=== PATIENT | female | born 1940 | race Hispanic/Latino ===

== ENCOUNTER 2024-10-19 09:03 | Emergency (ER) | payer MEDICARE ==
[~2024-10-19] VITALS: Ht 152.4 cm; Wt 69.4 kg
[2024-10-19 09:32] LABS: EOSINOPHILS % 0.6 % (0.0-6.0); HEMATOCRIT 38.7 % (34.2-44.1); HEMOGLOBIN 12.4 g/dL (12.0-16.0); LYMPHOCYTES # (AUTO) 0.8 (1.0-3.2); LYMPHOCYTES % 12.4 % (18.0-39.1); MEAN CORPUSCULAR VOLUME 90.6 fL (81-99); MONOCYTES # (AUTO) 0.4 (0.2-0.8); MONOCYTES % 5.5 % (4.4-11.3); NEUTROPHILS # (AUTO) 5.5 (2.1-6.9); NEUTROPHILS % 81.4 % (38.7-80.0); PLATELET COUNT 352 x10e3/uL (140-360); RED BLOOD COUNT 4.27 x10e6/uL (3.6-5.1); RED CELL DISTRIBUTION WIDTH 14.1 % (11.7-14.4); WHITE BLOOD COUNT 6.72 x10e3/uL (4.8-10.8)
[2024-10-19 09:41] LABS: CLARITY,URINE CLEAR (CLEAR); COLOR,URINE YELLOW (YELLOW)
[2024-10-19 09:42] LABS: BILIRUBIN,URINE NEGATIVE (NEGATIVE); GLUCOSE, URINE NEGATIVE (NEGATIVE); KETONES,URINE NEGATIVE (NEGATIVE); LEUKOCYTE ESTERASE ,URINE NEGATIVE (NEGATIVE); NITRITE,URINE NEGATIVE (NEGATIVE); PH,URINE 5.5 (5 - 7); PROTEIN,URINE DIPSTICK NEGATIVE (NEGATIVE); URINE UROBILINOGEN 0.2 mg/dL (0.2 - 1)
[2024-10-19 09:46] LABS: INR 0.89; PROTHROMBIN TIME 12.9 seconds (11.9-14.5)
[2024-10-19 09:47] LABS: PARTIAL THROMBOPLASTIN TIME 28.6 seconds (23.8-35.5)
[2024-10-19 09:54] LABS: WBC,URINE (MAN) 0-5 /HPF (0-5)
[2024-10-19] MEDS: SODIUM CHLORIDE 0.9% 1000ML 1,000 ML IV STA (09:54)
[2024-10-19 09:55] LABS: BACTERIA,URINE RARE /HPF; EPITHELIAL CELLS,URINE RARE /LPF
[2024-10-19] MEDS: DIPHENHYDRAMINE HCL INJ 50 MG/ML VIAL IV ONE (09:55)
[2024-10-19] MEDS: METOCLOPRAMIDE HCL 10 MG/2ML VIAL IV ONE (09:55)
[2024-10-19 09:56] LABS: ANION GAP 15.8 mmol/L (8-16); BILIRUBIN,TOTAL 0.8 mg/dL (0.2-1.2); CALCIUM 9.8 mg/dL (8.4-10.2); CREATININE, SERUM 1.37 mg/dL (0.57-1.11); MAGNESIUM 2.2 MG/DL (1.3-2.1); POTASSIUM 4.8 mmol/L (3.5-5.1); TOTAL PROTEIN 7.9 g/dL (6.5-8.1)
[2024-10-19] MEDS ORDERED: METOCLOPRAMIDE HCL 10 MG/2ML VIAL IV ONE (10:00)
[2024-10-19 10:31] VITALS: PULSE 71; RESP 16; TEMP 98.4; O2SAT 99
[2024-10-19] MEDS ORDERED: FLOMAX0.4 MG PO (10:38)
[2024-10-19] MEDS ORDERED: ONDANSETRON ODT4 MG PO (10:38)
[2024-10-19] MEDS ORDERED: HYDROCODON-ACE1 EA11 PO (10:38)
== END 2024-10-19 10:50 | disposition home or self-care (01) ==
LOC: ER 09:13
DX: K52.9 Noninfective gastroenteritis and colitis, unspecified (principal); N20.0 Calculus of kidney; R11.0 Nausea; I12.9 Hypertensive chronic kidney disease with stage 1 through stage 4 chronic kidney disease, or unspecified chronic kidney disease; N18.9 Chronic kidney disease, unspecified; I10 Essential (primary) hypertension; E03.8 Other specified hypothyroidism
CPT/HCPCS: 36415; 74176; 80053; 81001; 83735; 85025; 85610; 85730; 99284; J1200; J2470; J2765; J7030